=== PATIENT | male | born 1955 | race Caucasian/White ===

== ENCOUNTER 2020-06-26 16:07 | Emergency (ER) | payer BC, OTHER ==
[2020-06-26] MEDS ORDERED: HYDROmorphone 0.5 MG/0.5 ML Syringe IM ONE (16:31)
[2020-06-26] MEDS ORDERED: Lidocaine 1% 10 ML MDV INJECT ONE (16:31)
--- NOTE | 2020-06-26 17:13 | EDM.PDOC ---
ED HPI GENERAL MEDICAL PROBLEM - General Chief Complaint: Laceration Stated Complaint: L INDEX FINGER LAC Time Seen by Provider: 06/26/20 16:17 Source of Information: Reports: Patient, RN Notes Reviewed History Limitations: Reports: Uncooperative - History of Present Illness INITIAL COMMENTS - FREE TEXT/NARRATIVE: Patient is a 64-year-old male who presents to the ED today for a left index finger injury. He was using a router 15 minutes prior to arrival to the ER visit, when he ended up nipping the tip of his left finger. He notes an injury to the tip of his left finger that does involve a small portion of the top of the nail. Bleeding was controlled at this time. He is not sure of his last tetanus update, but his thinks that he is up-to-date. Patient denies any other sick-like symptoms, fever/chills, cough/shortness of breath, nausea/vomiting/diarrhea. He has all range of motion of his finger proximal to the injury. He is not having any numbness or tingling that he is aware of. There is quite a bit of pain, there is a skin flap type injury apparent. Left Finger-Little Pain Score (Numeric/FACES): 9 - Related Data Allergies Allergy/AdvReac Type Severity Reaction Status Date / Time No Known Allergies Allergy Verified 06/26/20 16:20 Home Meds: Home Meds Acetaminophen/HYDROcodone [[place] 325-5 MG] 1 tab PO Q6H PRN #15 tablet 06/26/20 [Rx] Aspirin [Lo-Dose Aspirin EC] 81 mg PO DAILY 06/26/20 [History] Metoprolol Succinate [Toprol XL] 25 mg PO DAILY 06/26/20 [History] atorvaSTATin [Lipitor] 40 mg PO DAILY 06/26/20 [History] cephALEXin [Cephalexin] 500 mg PO QID 7 Days #28 tablet 06/26/20 [Rx] Social & Family History - Tobacco Use Smoking Status *Q: Former Smoker Used Tobacco, but Quit: Yes Month/Year Tobacco Last Used: 2004 - Caffeine Use Caffeine Use: Reports: Coffee - Recreational Drug Use Recreational Drug Use: No ED ROS GENERAL - Review of Systems Review Of Systems: Comprehensive ROS is negative, except as noted in HPI. ED EXAM, SKIN/RASH Exam: See Below Exam Limited By: No Limitations General Appearance: Alert, WD/WN, No Apparent Distress, Anxious (mild, d/t pain in finger) Respiratory/Chest: No Respiratory Distress, Lungs Clear, Normal Breath Sounds, No Accessory Muscle Use, Chest Non-Tender Cardiovascular: Normal Peripheral Pulses, Regular Rate, Rhythm, No Murmur Peripheral Pulses: 2+: Radial (L), Radial (R) Extremities: Normal Range of Motion, Normal Capillary Refill, Other (See skin assessment for further injury detail) Neurological: Alert, Oriented, Normal Cognition, No Motor/Sensory Deficits Psychiatric: Normal Affect, Normal Mood Skin: Warm, Dry, Normal Color, No Rash, Wound/Incision (There is a rather jagged skin flap to the patient's left distal second digit fingertip not actively bleeding patient has good strength in the digit at this time.) ED SKIN PROCEDURES - Laceration/Wound Repair Left Distal Digit - 2nd (Index) Appearance: Subcutaneous, Irregular Distal NVT: Neuro & Vascular Intact, No Tendon Injury Anesthetic Type: Digital Local Anesthesia - Lidocaine (Xylocaine): 1% Plain Local Anesthetic Volume: 4cc Skin Prep: Chlorhexidine (Hibiciens), Saline Exploration/Debridement/Repair: Wound Explored, In a Bloodless Field, Explored to Base, No Foreign Material Found, Other (skin flap approximated to promote healing) Closed with: Sutures Lac/Wound length In cm: 3 Suture Size: 4-0 # of Sutures: 2 Suture Type: Prolene, Interrupted, Simple Sterile Dressing Applied: Nurse Tetanus Status Addressed: Yes Complications: No Course - Vital Signs Last Recorded V/S: Last Vital Signs Temp Pulse 70 06/26/20 16:15 Resp 18 06/26/20 16:15 BP 137/120 H 06/26/20 16:15 Pulse Ox 96 06/26/20 16:15 - Orders/Labs/Meds Orders: Active Orders 24 hr Category Date Time Status Fingers Second Digit Lt F1 [CR] Stat Exams 06/26/20 16:30 Taken Meds: Medications Discontinued Medications Generic Name Dose Route Start Last Admin Trade Name Freq PRN Reason Stop Dose Admin Hydromorphone HCl 0.5 mg 06/26/20 16:31 06/26/20 17:05 Dilaudid IM 06/26/20 16:32 0.5 mg ONETIME ONE Administration Lidocaine HCl 10 ml 06/26/20 16:31 06/26/20 17:05 Xylocaine 1% INJECT 06/26/20 16:32 10 ml ONETIME ONE Administration - Re-Assessments/Exams Free Text/Narrative Re-Assessment/Exam: 06/26/20 17:15 Patient presents to the ED for the evaluation of his index finger injury of his left hand. X-rays were obtained, and they do demonstrate a comminuted second finger tuft fracture, a small portion of the palmar cortex missing, moderate to market soft tissue avulsion/laceration of the second digit. Patient be placed on Keflex 1 tablet 4 times daily for the next 7 days and have him follow-up with his regular care provider. Departure - Departure Time of Disposition: 17:16 Disposition: Home, Self-Care 01 Condition: Good Clinical Impression: Open fracture of tuft of distal phalanx of finger Laceration of finger of left hand Qualifiers: Encounter type: initial encounter Finger: index finger Damage to nail status: with damage Foreign body presence: without foreign body Qualified Code(s): S61.311A - Laceration without foreign body of left index finger with damage to nail, initial encounter - Discharge Information *PRESCRIPTION DRUG MONITORING PROGRAM REVIEWED*: Yes *COPY OF PRESCRIPTION DRUG MONITORING REPORT IN PATIENT EMANUEL: No Prescriptions: cephALEXin [Cephalexin] 500 mg PO QID 7 Days #28 tablet Acetaminophen/HYDROcodone [[place] 325-5 MG] 1 tab PO Q6H PRN #15 tablet PRN Reason: Pain Instructions: Finger Fracture, Adult, [id number], Sutures, [place], or Adhesive Wound Closure, [id number] Referrals: PCP,Not In Area [Primary Care Provider] - Forms: ED Department Discharge Additional Instructions: You have been evaluated in the ED for your laceration. Sutures will need to stay in for 10 to 14 days. You may return to the ED or any clinic for removal. Please keep this area clean and dry, you may cleanse with regular soap and water. No vigorous scrubbing. Please try to avoid submerging the affected area in water for prolonged periods of time until the sutures are removed. You also have suffered from a tuft fracture of your distal fingertip, this is where part of the bone very small part of the bone has broken off, you will need to be on Keflex, 1 tab 4 times a day for the next 7 days to promote healing of the wound, and to make sure that you do not get a bone infection. As this will be your second round of antibiotic in a short amount of time, I highly recommend you start a probiotic like Florajen, or just ask the pharmacist to pick you 1 out of the fridge recommend a good one. You may take 500 mg Tylenol or 600 mg ibuprofen every 6 hours as needed for further pain relief. Do not exceed 4000 mg Tylenol or 3200 mg ibuprofen in a 24-hour time span. You were given a prescription for a strong pain medication, hydrocodone/acetaminophen 5/325 mg, please take 1 tab every 6 hours as needed for pain not relieved by Tylenol or ibuprofen alone. Please note this medication does contain Tylenol in it, so do not take more than 4000 mg in a 24- hour time span. These medications can be addictive, so please take as few as possible to achieve adequate pain control. These meds can also be quite constipating, recommend that you increase your oral fluid intake and take a stool softener like MiraLAX while taking these medications. Do not drive while taking this medication. Please return to ED if your symptoms change or worsen. Sepsis Event Note (ED) - Evaluation Sepsis Screening Result: No Definite Risk - Focused Exam Vital Signs: Vital Signs Pulse Resp BP Pulse Ox 06/26/20 16:15 70 18 137/120 H 96 - My Orders Last 24 Hours: My Active Orders 06/26/20 16:30 Fingers Second Digit Lt F1 [CR] Stat - Assessment/Plan Last 24 Hours: My Active Orders 06/26/20 16:30 Fingers Second Digit Lt F1 [CR] Stat
== END 2020-06-26 18:30 | disposition home or self-care (01) ==
LOC: JD.ED 16:07
DX: S62.631B Displaced fracture of distal phalanx of left index finger, initial encounter for open fracture (principal); Z79.82 Long term (current) use of aspirin; Z79.899 Other long term (current) drug therapy; Z87.891 Personal history of nicotine dependence; W22.8XXA Striking against or struck by other objects, initial encounter
CPT/HCPCS: 12002; 73140; 96372; 99283; J1170; J2001; 99282